=== PATIENT | male | born 1955 | race Caucasian/White ===

== ENCOUNTER 2017-03-03 15:19 | Emergency (ER) | payer OTHER ==
[2017-03-03 15:26] VITALS: BP 174/93
--- NOTE | 2017-03-03 15:48 | ERNOTE ---
Medical Problem HPI - Narrative Date of Service: 03/03/17 - General Chief Complaint: Laceration Time Seen by Provider: 03/03/17 15:27 Source: patient Exam Limitations: no limitations - Immun/Allergies/Home Medications Immunizations: IMMUNIZATION HX Immunizations Up to Date Yes History of Influenza Vaccine No Hx Pneumococcal Vaccination No Allergies/Adverse Reactions: Allergies No Known Allergies Allergy (Unverified 03/03/17 15:26) Home Medications: HOME MEDICATIONS NK [No Home Medication] 03/03/17 [Last Taken Unknown] - History of Present History Narrative: Pt. comes in with c/o laceration of his L index finger just prior to arrival when it got pinched between a garage door and the garage door railing he was trying to fix. Pt. states that finger stopped bleeding after putting a band aid on it and would like to not have stitches if at all possible. Review of Systems - Review of Systems Constitutional: Present: no symptoms reported. Absent: recent illness, fever, chills, weakness, fatigue, malaise EYE: Present: no symptoms reported ENT: Present: no symptoms reported Respiratory: Present: no symptoms reported. Absent: shortness of breath, cough , wheezing Cardiology: Present: no symptoms reported. Absent: chest pain, palpitations, edema Gastrointestinal/Abdominal: Present: no symptoms reported. Absent: nausea, vomiting, diarrhea, abdominal pain Genitourinary: Present: no symptoms reported Musculoskeletal: Present: joint pain - L index finger Skin: Present: no symptoms reported Neurological: Present: tingling - L tip of index finger. Absent: headache, dizziness/light-headedness, numbness All Other Systems: All systems neg except as marked - Patient's Past Medical History Patient History - Medical: No pertinent hx Patient History - Cardiac/Respiratory: No pertinent hx Patient History - Cancer: No Hx of Cancer Patient History - Surgical Procedures: T & A Patient History - Other: None - Social History Living Situations: home Psych History: No pertinent hx - Immunizations Immunizations Up to Date: Yes Hx Pneumococcal Vaccination: No History of Influenza Vaccine: No Physical Exam - Physical Exam General Appearance: Present: wd/wn, alert, no apparent distress Eye Exam: Normal inspection: bilateral, PERRL: bilateral, EOMI: bilateral Neck: Present: normal inspection, nontender Respiratory: Present: no respiratory distress, normal breath sounds, no accessory muscle use, chest nontender, lungs clear Cardiovascular/Chest: Present: regular rate, rhythm, no murmur, normal peripheral pulses Extremity Exam: Present: normal range of motion, no edema, joint swelling - DIP joint of L 2nd finger Neurological Exam: Present: alert, oriented, normal mood/affect, no motor/ sensory deficits Skin Exam: Present: normal color, warm/dry, other - superficial tearing iregular laceration of the distal lateral L second finger 1.5 cm in length ED Progress - Date and Time Seen: Date and Time: 03/03/17 15:43 Discussed options of closure with pt. and would like to use glue for closure and I feel that glue will have a good result as wound is superficial and not over a joint and pt. agrees to keep clean and dry for 7-10 days. - Vital Signs Patient's Vital Signs:: I have reviewed the patient's vital signs. Vital Signs: Vital Signs 03/03/17 15:23 Temperature 37.2 C Pulse Rate 86 Respiratory 16 Rate Blood Pressure 174/93 O2 Sat by Pulse 98 Oximetry - Progress/Reassessment Chief Complaint: Laceration Progress:: Improved Procedures Left Lateral Distal Finger 2nd Digit I & D Prep: betadine prep Wound's Depth/Shape: superficial Wound Explored: clean Wound Intervention: irrigated w/saline Distal NVT: neuro/vasc intact, no tendon injury Wound Repaired With: Dermabond, Steri-strips Estimated blood loss (ml): 0 Wound Dressing: sterile dressing applied Complications: Pt beth procedure well Departure - Departure Clinical Impression: Laceration Disposition: Home self-care Condition: Good Instructions: Tissue Adhesive Wound Care Additional Instructions: Please follow up with primary provider as needed. Referrals: Gasper Poole DO [Primary Care Provider] -
[2017-03-03] MEDS ORDERED: DIPHTH,PERTUSS(ACELL),TET VAC 0.5 ML VIAL IM ONE ×2 (15:59→16:01)
--- OUTSIDE RECORDS SUMMARY | 2017-03-03 16:03 | XMS REPORT | Continuity of Care Document ---
:1955 Author Organization [facility] ([place]) Address [address] [place] [address] Phone [phone] Care Team Providers Name Role Phone Unavailable Primary Care Provider Unavailable Source Comments This disclosure is being made pursuant to the Care Everywhere program, applicable federal and state laws, and may not contain all informaitonavailable regarding this patient.[facility] ([place] Active Allergies and Adverse Reactions Not on File Current Medications Not on file Active Problems Not on file Social History Tobacco Use Types Packs/Day Years Used Date Never Assessed Plan of Care Health Maintenance Due Date Last Done Comments HCV Screening 1955 Hepatitis B Vaccine (1 of 3 - Primary Series) 1955 Tdap Vaccine 01/17/1967 Lipid Disorder Screening 01/17/1974 MMR Vaccine 01/17/1974 Td Vaccine 01/17/1974 Colonoscopy 01/17/2006 Prostate Cancer Screening 01/17/2006 Zoster Vaccine 2016 Influenza Vaccine: Seasonal (#1) 04/20/2016 Results from Last 3 Months Not on file
== END 2017-03-03 16:11 | disposition home or self-care (01) ==
LOC: ER 15:19
PROC: 0HQGXZZ Repair Left Hand Skin, External Approach (ICD-10-PCS; principal; 2017-03-03)
DX: S61.211A Laceration without foreign body of left index finger without damage to nail, initial encounter (principal); W23.0XXA Caught, crushed, jammed, or pinched between moving objects, initial encounter; Z23 Encounter for immunization